=== PATIENT | male | born 1970 | race Caucasian/White ===

== ENCOUNTER → 2017-05-03 | Outpatient (CLI) | payer OTHER ==
[~2017-05-03] MED LIST: ASPIRIN81 M2 PO; ATACAND PO; ATENOLOL PO; ATENOLOL25 MG PO; CHEWABLE ASPIRI81 MG PO; EFFIENT10 MG PO; LIPITOR20 MG PO; LIPITOR40 MG PO; LISINOPRIL2.5 MG PO; LOW DOSE ASPIRI81 M1 PO; NITROGLYCERIN0.4 MG; NITROGLYGERIN0.4 MG SL; PANTOPRAZOLE SO20 MG PO; PLAVIX PO; PROMETHAZINE HC25 MG PO; TESTIM PO; TYLENOL325 M1 PO; ZESTRIL2.5 MG PO
--- NOTE | ~2017-05-03 | EKG ---
PATIENT: DEVYN LUNA UNIT #: [id number] Ventricular Rate: 74 BPM Atrial Rate: 74 BPM P-R Interval: 162 ms QRS Duration: 84 ms Q-T Interval: 380 ms QTC Calculation(Bezet): 421 ms P [place]: 12 degrees Calculated R [place]: 36 degrees Calculated T [place]: 21 degrees Diagnosis Line: Normal sinus rhythm with sinus arrhythmia Diagnosis Line: Normal ECG Diagnosis Line: When compared with ECG of 13-AUG-2015 13:12, Diagnosis Line: No significant change was found Diagnosis Line: Confirmed by PATRICIA MCNEIL MD ([id number]) on Diagnosis Line: 05/03/2017 4:26:03 PM INTERPRETING MD: INDRA
[2017-05-03 09:43] LABS: HEMATOCRIT 44.9 % (38.0-50.0); HEMOGLOBIN 15.1 gm/dL (13.0-16.0); MEAN CELL VOLUME 87.2 FL (83-96); MEAN CORPUSCULAR HEMOGLOBIN 29.4 PG (28-34); MEAN CORPUSCULAR HGB CONC 33.7 g/dL (30-36); MEAN PLATELET VOLUME 7.5 FL (6.5-11.5); RED BLOOD COUNT 5.14 X10e (3.90-5.60); RED CELL DISTRIBUTION WIDTH 13.3 % (11.0-15.5); WHITE BLOOD COUNT 6.3 X10e3 (4.0-10.5)
[2017-05-03 10:00] LABS: PARTIAL THROMBOPLASTIN TIME 25.9 SECONDS (23.5-31.3); PROTHROMBIN TIME (PATIENT) 10.7 SECONDS (10.0-11.7)
[2017-05-03 10:14] LABS: CALCIUM SERUM 9.2 mg/dL (8.4-10.2); GLOM FILT RATE Estimated 90.5 mL/min (>60)
== END | disposition home or self-care (01) ==
LOC: CCVL 09:04
PROVIDERS: Internal Medicine Cardiovascular Disease
PROC: 4A023N7 Measurement of Cardiac Sampling and Pressure, Left Heart, Percutaneous Approach (ICD-10-PCS; principal; 2017-05-03)
PROC: B211YZZ Fluoroscopy of Multiple Coronary Arteries using Other Contrast (ICD-10-PCS; 2017-05-03)
PROC: B215YZZ Fluoroscopy of Left Heart using Other Contrast (ICD-10-PCS; 2017-05-03)
DX: R07.89 Other chest pain (principal); I25.2 Old myocardial infarction; I25.10 Atherosclerotic heart disease of native coronary artery without angina pectoris; Z95.5 Presence of coronary angioplasty implant and graft; E78.00 Pure hypercholesterolemia, unspecified; R06.02 Shortness of breath; E29.1 Testicular hypofunction; Z79.899 Other long term (current) drug therapy; Z79.82 Long term (current) use of aspirin; F52.21 Male erectile disorder; Z82.49 Family history of ischemic heart disease and other diseases of the circulatory system; Z88.5 Allergy status to narcotic agent
CPT/HCPCS: 36415; 80048; 85027; 85610; 85730; 93005; C1769; C1887; C1894; J1644; J2250; J3010